=== PATIENT | female | born 1960 | race Caucasian/White ===

== ENCOUNTER 2018-10-06 06:57 | Day surgery (SDC) | payer BC ==
--- NOTE | 2018-10-03 12:57 | HP ---
CC: Dr. Casiano; Dr. Martinez* ADMITTING HISTORY AND PHYSICAL: DATE OF ADMISSION: 10/06/18 ADMITTING DIAGNOSIS: Left renal calculus. PLANNED PROCEDURE: Shock wave lithotripsy of left renal calculus. SURGEON: Dr. Martinez. HISTORY OF PRESENT ILLNESS: Kyra Bright is a 57-year-old lady, who was recently seen in followup and noted to have an 8.5-mm calculus in the left kidney; this has increased in size and she would like treatment of the same and is now being brought in for lithotripsy. PAST MEDICAL HISTORY: Unremarkable. PAST SURGICAL HISTORY: Significant for hysterectomy, , and lithotripsy in 2013. MEDICATIONS ON ADMISSION: None. ALLERGIES AND INTOLERANCES: PENICILLIN (breathing issues), SULFA (rash), ADHESIVE TAPE, LATEX. FAMILY HISTORY: Negative for stones. SOCIAL HISTORY: Smoking history: She is a nonsmoker. PHYSICAL EXAMINATION GENERAL: Reveals a pleasant middle-aged lady. VITAL SIGNS: Blood pressure is 104/70, pulse 67 per minute, temperature 97.7, oxygen saturation 98% on room air. LUNGS: Clear bilaterally. CARDIOVASCULAR: Regular rate and rhythm, S1 and S2. ABDOMEN: Soft with mild left flank tenderness. IMPRESSION: A 57-year-old lady with an 8.5-mm left renal calculus. I have discussed the procedure of lithotripsy in detail with her including risks of bleeding, infection, incomplete fragmentation. She understands and wishes to proceed as planned. PLAN: Shock wave lithotripsy, left renal calculus. [id number] #: [id number] MTDD
[~2018-10-06 06:57] MED LIST: Buffered Lidocaine 1% SYRIN* 1 ML/SYRINGE INTRADERM ONE; Famotidine IV* 10 MG/ML 2 ML (20 mg) IV ONE; Lactated Ringers 1000 ML Bag* 1,000 ML IV SCH
[2018-10-06] MEDS ORDERED: Famotidine IV* 10 MG/ML 2 ML (20 mg) ONE (07:02)
[2018-10-06] MEDS ORDERED: Levofloxacin 500 MG IVPREMIX(* 500 MG/100 ML BAG IVPB ONE (07:02)
[2018-10-06] MEDS ORDERED: Propofol* 10 MG/ML 20 ML BTL ONE (08:26)
[2018-10-06] MEDS ORDERED: Ondansetron INJ* 2 MG/ML VIAL ONE (08:26)
[2018-10-06] MEDS ORDERED: Lidocaine 2% PF * 5 ML VIAL ONE (08:26)
[2018-10-06] MEDS ORDERED: Dexamethasone IV* 4 MG/ML 1 ML (4 MG) ONE (08:26)
[2018-10-06] MEDS ORDERED: Midazolam* 1 MG/ML 5 ML VIAL (5 MG) ONE (08:26)
[2018-10-06] MEDS ORDERED: fentaNYL* 50 MCG/ML 2 ML VIAL (100 MCG VIAL) ONE (08:26)
[2018-10-06] MEDS ORDERED: EPHEDrine (Pressors)* 50 MG/ML VIAL ONE (09:43)
[2018-10-06] MEDS ORDERED: Furosemide IV* 10 MG/ML 2 ML VIAL (20 MG) ONE (09:50)
[2018-10-06] MEDS ORDERED: Ondansetron INJ* 2 MG/ML VIAL IV PRN (09:55)
[2018-10-06] MEDS ORDERED: oxyCODONE/Acetamin 5/325 MG* TAB PO PRN (09:55)
[2018-10-06] MEDS ORDERED: fentaNYL* 50 MCG/ML 2 ML VIAL (100 MCG VIAL) IV PRN (09:55)
[2018-10-06] MEDS ORDERED: Naloxone* 0.4 MG/ML 1 ML VIAL IV PRN (09:55)
[2018-10-06 11:10] VITALS: BP 122/70
--- NOTE | 2018-10-06 16:48 | OP ---
CC: Dr. Casiano, Dr. Martinez OPERATIVE SUMMARY: DATE OF OPERATION: 10/06/18 DATE OF : 60 SURGEON: Dr. Martinez. ANESTHESIOLOGIST: Dr. Lo. ANESTHESIA: General. PRE-OP DIAGNOSIS: Left renal calculus. POST-OP DIAGNOSIS: Left renal calculus. OPERATIVE PROCEDURE: Shockwave lithotripsy of the left renal calculus. COMPLICATIONS: None. POSTOPERATIVE CONDITION: Stable. INDICATIONS: Kyra Bright is a 57-year-old lady who was noted to have an approximately 8 mm to 9 mm calculus in the left kidney and desires treatment of the same. DESCRIPTION OF PROCEDURE: After induction of general anesthesia, the patient was placed on the litho tripsy table in the supine position. Sequential compression devices were in place and functioning. Initial fluoroscopy identified the calculus in the left kidney and shockwave lithotripsy was commence d at the rate of 60 shocks per minute. After the initial 300 shocks, there was a pause in lithotrips y for several minutes in an effort to minimize any potential trauma to the kidney. Lithotripsy was th en resumed and periodic imaging revealed good localization and fragmentation and a total of 1600 shoc ks were administered. The patient tolerated the procedure satisfactorily and was transferred back to recovery area in stable condition. [id number]/[facility] #: [id number]
== END 2018-10-06 11:25 | disposition home or self-care (01) ==
LOC: OR 06:57
PROVIDERS: ATTEND Urology
DX: N20.0 Calculus of kidney (principal); Z90.710 Acquired absence of both cervix and uterus; Z91.040 Latex allergy status; Z88.0 Allergy status to penicillin; Z88.2 Allergy status to sulfonamides; Z91.048 Other nonmedicinal substance allergy status
CPT/HCPCS: 74018; J1100; J1940; J1956; J2250; J2405; J2704; J3010

== ENCOUNTER → 2019-05-11 08:00 | Day surgery (SDC) | payer BC ==
--- NOTE | 2019-04-17 07:01 | HP ---
CC: Dr. Casiano * ADMITTING HISTORY AND PHYSICAL: DATE OF OPERATION: 05/11/19 ADMITTING DIAGNOSIS: Multiple right renal calculi. PLANNED PROCEDURE: Shockwave lithotripsy of right renal calculi. SURGEON: Dr. Martinez. HISTORY OF PRESENT ILLNESS: Kyra Bright is a 58-year-old lady with a history of bilateral renal calculi. She had previously undergone successful treatment of left renal calculi and a recent ultrasound showed complete resolution of the previously noted left renal calculi. She had 3 right renal calculi and is now being brought in for shockwave lithotripsy for the same, as she has been having some intermittent right flank pain for the last 3 weeks. PAST MEDICAL HISTORY: Significant for renal calculi. MEDICATIONS ON ADMISSION: None. ALLERGIES AND INTOLERANCES: PENICILLIN, SULFA, LATEX, and ADHESIVE TAPE. SOCIAL HISTORY: Smoking history: Nonsmoker. REVIEW OF SYSTEMS: She denies any chest pain or shortness of breath. There is no history of diabetes mellitus or any other major systemic illness. PHYSICAL EXAMINATION GENERAL: Reveals a pleasant middle-aged lady. VITAL SIGNS: Blood pressure is 110/70, pulse 62 per minute and regular, oxygen saturation 98% on room air, temperature 96.3. LUNGS: Clear bilaterally. CARDIOVASCULAR: Regular rate and rhythm. S1, S2. ABDOMEN: Soft with mild right flank tenderness. IMPRESSION: A 58-year-old lady with multiple right renal calculi. PLAN/RECOMMENDATIONS: Planned procedure is shockwave lithotripsy of right renal calculi. [id number]/CPS #: [id number] MTDD
[~2019-05-11 08:00] MED LIST changes: +Acetaminophen TAB* 325 MG PO PRN; +Dexamethasone IV* 4 MG/ML 1 ML (4 MG) IV SLOW PU ONE; +Dexamethasone IV* 4 MG/ML 1 ML (4 MG) ONE; +EPHEDrine (Pressors)* 50 MG/ML VIAL ONE; +Furosemide IV* 10 MG/ML 2 ML VIAL (20 MG) ONE; +HYDROcodone/ACETAMIN 5-325 MG* 1 TAB PO PRN; +HYDROmorphone INJ1* 1 MG/ML SYRINGE IV PRN; +Iohexol 180 (CONTRAST) 10 ML SDV IV ONE; +Levofloxacin 500 MG IVPREMIX(* 500 MG/100 ML BAG IVPB ONE; +Lidocaine 2% PF * 5 ML VIAL ONE; +Midazolam* 1 MG/ML 2 ML VIAL (2 MG) ONE; +Naloxone* 0.4 MG/ML 1 ML VIAL IV PRN; +Ondansetron INJ* 2 MG/ML VIAL ONE; +Phenylephrine 40 MCG/ML SYRINGE ONE; +Propofol* 10 MG/ML 20 ML BTL ONE; +fentaNYL* 50 MCG/ML 2 ML VIAL (100 MCG VIAL) ONE
[2019-05-11] MEDS: Lactated Ringers 1000 ML Bag* 1,000 ML IV SCH ×2 (08:45→09:01)
[2019-05-11 13:31] VITALS: BP 112/75
--- NOTE | 2019-05-11 17:21 | OP ---
CC: Dr. Casiano * DATE OF OPERATION: 05/11/19 - [facility] DATE OF : 60 SURGEON: Maurilio Martinez MD ANESTHESIOLOGIST: Dr. Castro. ANESTHESIA: General. PRE-OP DIAGNOSIS: Right renal calculi. POST-OP DIAGNOSIS: Right renal calculi. OPERATIVE PROCEDURE: Shockwave lithotripsy of right renal calculi. COMPLICATIONS: None. POSTOPERATIVE CONDITION: Stable. INDICATIONS: Kyra Bright is a 58-year-old lady with a history of bilateral renal calculi. She was recently evaluated and noted to have multiple right renal calculi, and is now being brought in for lithotripsy for the same. OPERATIVE FINDINGS: Multiple right renal calculi. DESCRIPTION OF PROCEDURE: After induction of general anesthesia, the patient was placed on the lithotripsy table in supine position. There were clusters of stones in the upper pole, mid pole, and lower pole of the right kidney. Under fluoroscopic monitoring, shockwave lithotripsy was commenced at a rate of 60 shocks per minute, initially targeting the lower pole stone. After the initial 300 shocks, there was a pause in lithotripsy for several minutes in an effort to minimize any potential trauma to the kidney. Lithotripsy was then resumed and a total of 2400 shock waves were distributed between the three clusters of stones. The patient tolerated the procedure satisfactorily and was transferred back to the recovery area in stable condition. My plan is to obtain a postoperative ultrasound in a few months to assess for degree of stone clearance. [id number]/CPS #: [id number] MTDD
== END | disposition home or self-care (01) ==
LOC: OR 08:00
PROVIDERS: ATTEND Urology
DX: N20.0 Calculus of kidney (principal); Z87.442 Personal history of urinary calculi; Z88.0 Allergy status to penicillin
CPT/HCPCS: 74018; J1100; J1940; J1956; J2250; J2405; J2704; J3010

== ENCOUNTER 2019-05-11 20:46 | Emergency (ER) | payer BC ==
[2019-05-11] MEDS ORDERED: NS 0.9% 1000 ML** 1,000 ML IV ONE (20:54)
[2019-05-11] MEDS ORDERED: Morphine 4 MG/ML VIAL (1 ml) 4 MG/ML VIAL IV ONE ×2 (20:54→23:24)
--- NOTE | 2019-05-11 21:02 | ED ---
GI/ HPI - HPI Summary HPI Summary: 58 year old female who presents to the ED via EMS for flank pain. Patient had lithotripsy today at 11 AM. She states she was at home when she began to pass a stone and was in excruciating pain. The pain wraps from her right flank to the right lower quadrant and is 10/10. Patient admits to nausea and vomiting. Also admits to hematuria. EMS gave Toradol and Zofran, which relieved pain, nausea and vomiting. The patient is now comfortable and states her pain is 4/10. she sees dr black. has fam hx of kidney stones. - History of Current Complaint Time Seen by Provider: 05/11/19 20:50 Stated Complaint: KIDNEY STONES PER EMS - Allergy/Home Medications Allergies/Adverse Reactions: Allergies Allergy/AdvReac Type Severity Reaction Status Date / Time Sulfa (Sulfonamide Allergy Severe Rash And Verified 05/11/19 21:24 Antibiotics) Itching Penicillins Allergy Intermediate Difficulty Verified 05/11/19 21:24 Breathing Adhesive Tape Allergy Unknown Verified 05/11/19 21:24 Reaction Details bee stings Allergy Severe Swelling Uncoded 05/11/19 21:24 Latex Allergy Severe Rash/Burnin Uncoded 05/11/19 21:24 g/Itching PMH/Surg Hx/FS Hx/Imm Hx Endocrine/Hematology History: Reports: Hx Thyroid Disease - Nodules-taking iodine drops-Hx Primary Hyperparathyroidism Cardiovascular History: Denies: Other Cardiovascular Problems/Disorders Respiratory History: Denies: Other Respiratory Problems/Disorders GI History: Reports: Hx Gastroesophageal Reflux Disease - Recently changed diet- symptoms have resolved, Hx Hiatal Hernia - NO TREAtment, Other GI Disorders - history of abdominal pain-no specific diagnosis History: Reports: Hx Kidney Stones - Hx of, current in right kidney-, lithotripsy in past Denies: Hx Dialysis Comment Only: Other Problems/Disorders - ALSO SOME CYST IN KIDNEYS, DR SAYS NO CONCERN CURRENTLY Musculoskeletal History: Reports: Other Musculoskeletal History - Left knee pain , cortisone [id number] resolved Sensory History: Reports: Hx Cataracts - Sun cataracts, Hx Contacts or Glasses - Glasses and contacts-will wear glasses day of surgery Denies: Hx Hearing Aid Opthamlomology History: Reports: Hx Cataracts - Sun cataracts, Hx Contacts or Glasses - Glasses and contacts-will wear glasses day of surgery Neurological History: Denies: Other Neuro Impairments/Disorders Psychiatric History: Reports: Hx Depression - states for a very short time, 3 weeks, 2004 more situational - Surgical History Surgery Procedure, Year, and Place: Parathyroidectomy 05/2015 [facility]. [place] Section x3. Hysterectomy 02/2003 [place]. Colonoscopies. Lithotripsy-[place] Hx Anesthesia Reactions: Yes - states she woke up during last lithotripsy - Family History Known Family History: Positive: Non-Contributory - Social History Alcohol Use: Rare Alcohol Amount: 2-3 DRINKS/YEAR MAYBE Substance Use Type: Reports: None Smoking Status (MU): Never Smoked Tobacco Have You Smoked in the Last Year: No Review of Systems Constitutional: Negative Cardiovascular: Negative Respiratory: Negative Positive: flank pain, hematuria Musculoskeletal: Negative Skin: Negative All Other Systems Reviewed And Are Negative: Yes Physical Exam Triage Information Reviewed: Yes Vital Signs Reviewed: Yes Appearance: Positive: Well-Appearing, No Pain Distress, Well-Nourished Skin: Positive: Warm, Skin Color Reflects Adequate Perfusion, Dry Head/Face: Positive: Normal Head/Face Inspection Eyes: Positive: Normal ENT: Positive: Pharynx normal Respiratory/Lung Sounds: Positive: Clear to Auscultation, Breath Sounds Present Cardiovascular: Positive: Normal, RRR Abdomen Description: Positive: Soft, CVA Tenderness (R), Other: - tenderness right side abd Bowel Sounds: Positive: Present Musculoskeletal: Positive: Normal Neurological: Positive: Normal Psychiatric: Positive: Normal, Affect/Mood Appropriate Procedures - Sedation Patient Received Moderate/Deep Sedation with Procedure: No Diagnostics - Laboratory Result Diagrams: 05/11/19 21:21 05/11/19 21:21 Lab Statement: Any lab studies that have been ordered have been reviewed, and results considered in the medical decision making process. - Radiology abd Radiology Interpretation Completed By: ED Physician Summary of Radiographic Findings: renal calculi present Re-Evaluation - Re-Evaluation First Eval Re-Evaluation Time: 23:24 Change: Worse Comment: pain returning, was given levaquin today Second Eval Change: Improved Comment: feeling better Third Eval Re-Evaluation Time: 00:43 Change: Unchanged Comment: pain resolved, patient feels comfortable going home at this time GIGU Course/Dx - Course Course Of Treatment: 58 year old female who presents with flank pain following lithotripsy this morning. She was given Zofran and Toradol with EMS and states that her pain, nausea, and vomiting has subsided. Lungs clear bilaterally, heart with regular rate and rhythm. mild right sided abdominal tenderness. Large stone in kidney noted on x-ray, no stones in ureters or urethra. wbc normal. urine shows potential uti. was given levaquin earlier today. will place on macrobid. patient pain is returning. gave more pain meds and feeling better and ready to go home. sent home on flomax and pain meds. will have follow up with urology. patient understand and agrees with plan. - Diagnoses Differential Diagnoses - Female: Pyelonephritis, Urinary Tract Infection, Ureteral Calculi Provider Diagnoses: Nephrolithiasis Discharge ED - Sign-Out/Discharge Documenting (check all that apply): Patient Departure - Discharge Plan Condition: Good Disposition: HOME Prescriptions: Hydrocodone/Acetaminophen [Vicodin Es 7.5-300 mg Tablet] 1 each PO Q6HR #16 tablet MDD 4 Nitrofurantoin Monohyd/M-Cryst [Macrobid 100 mg Capsule] 100 mg PO BID #10 cap Ondansetron ODT TAB* [Zofran 4 MG Odt TAB*] 4 mg PO Q6H PRN #16 tab.odt PRN Reason: Nausea Tamsulosin CAP* [Flomax CAP*] 0.4 mg PO DAILY #6 cap Patient Education Materials: Kidney Stones (ED) Referrals: Eagle Casiano MD [Primary Care Provider] - Maurilio Black MD [Medical Doctor] - Additional Instructions: take macrobid twice a day for 5 days Take ibuprofen every 6 hours and vicodin up to two tablets as needed every 6 hours Take Zofran every 6 hours for nausea as needed Take Flomax daily starting tomorrow, first dose given in ED until stone expelled , make sure stand up slowly Follow up with urology Strain urine until collect stone Return to ED if unable to manage pain at home, develop fever, or any new or worsening symptoms - Billing Disposition and Condition Condition: GOOD Disposition: Home
[2019-05-11 21:33] LABS: ABS Lymphocytes 0.9 10^3/ul (1.0-4.8); ABS Monocytes 0.6 10^3/ul (0-0.8); ABS Neutrophils 8.4 10^3/ul (1.5-7.7); Hematocrit 41 % (35-47); Hemoglobin 13.8 g/dL (12.0-16.0); Lymphocyte % 8.7 %; Mean Corpuscular HGB Conc 34 g/dL (31-36); Mean Corpuscular Hemoglobin 30 pg (27-31); Mean Corpuscular Volume 87 fL (80-97); Mean Platelet Volume 6.7 fL (7.4-10.4); Platelet Count 251 10^3/uL (150-450); Red Blood Count 4.68 10^6 /uL (3.70-4.87); Red Cell Distribution Width 14 % (10-15); White Blood Count 9.8 10^3/uL (3.5-10.8)
[2019-05-11 21:47] LABS: Albumin 4.1 g/dL (3.2-5.2); Albumin/Globulin Ratio 1.7 (1-3); BUN/Creatinine Ratio 25.3 (8-20); Calcium 9.4 mg/dL (8.6-10.3); EGFR African American 90.4 (>60); EGFR Non-African American 74.7 (>60); Globulin 2.4 g/dL (2-4); Total Bilirubin 0.4 mg/dL (0.2-1.0); Total Protein 6.5 g/dL (6.4-8.9)
[2019-05-11] MEDS ORDERED: Tamsulosin CAP* 0.4 MG PO ONE (22:53)
[2019-05-11 23:15] LABS: Urine Appearance Cloudy; Urine Bacteria Absent (Absent); Urine Bilirubin Negative (Negative); Urine Blood 3+ (Negative); Urine Color Amber; Urine Glucose Negative (Negative); Urine Ketones 1+ (Negative); Urine Nitrite Negative (Negative); Urine Protein 1+(30 mg/dL) (Negative); Urine Red Blood Cell 3+(>10/hpf) (Absent); Urine Specific Gravity 1.013 (1.010-1.030); Urine Squamous Epithelial Cell Present (Absent); Urine Urobilinogen Negative (Negative); Urine White Blood Cell 2+(11-20/hpf) (Absent)
[2019-05-11] MEDS ORDERED: Ondansetron INJ* 2 MG/ML VIAL IV ONE (23:24)
[2019-05-11] MEDS ORDERED: Ketorolac INJ* 30 MG/ML 1 ML VIAL IV PUSH ONE (23:24)
[2019-05-12] MEDS ORDERED: O ndansetron ODT 4MG 5TAB PRPK 4 MG PAK PO ONE (00:35)
[2019-05-12 01:03] VITALS: BP 104/67
--- NOTE | 2019-05-12 10:07 | ED ---
Imaging and Labs Follow Up Follow Up Type: Imaging Imaging Result: There is a small calculus in the right proximal ureter Patient Communication/Plan: Patient was treated appropriately and has proper follow-up in the near future. Nothing further at this time. Provider Diagnoses: Nephrolithiasis
== END 2019-05-12 00:45 | disposition home or self-care (01) ==
LOC: ED 20:46
DX: N20.0 Calculus of kidney (principal); Z84.1 Family history of disorders of kidney and ureter; E07.9 Disorder of thyroid, unspecified; Z88.0 Allergy status to penicillin; Z88.2 Allergy status to sulfonamides; K21.9 Gastro-esophageal reflux disease without esophagitis
CPT/HCPCS: 36415; 74018; 80053; 81003; 81015; 85025; 87086; 96361; 96374; 96375; 96376; 99283; A9270-GY; J1885; J2270; J2405

== ENCOUNTER → 2019-05-13 10:04 | Day surgery (SDC) | payer BC ==
[~2019-05-13 10:04] MED LIST changes: -Acetaminophen TAB* 325 MG PO PRN; -Dexamethasone IV* 4 MG/ML 1 ML (4 MG) IV SLOW PU ONE; -Dexamethasone IV* 4 MG/ML 1 ML (4 MG) ONE; +DiMENhydriNATE IV* 50 MG/ML VIAL IV PUSH PRN; -EPHEDrine (Pressors)* 50 MG/ML VIAL ONE; -Famotidine IV* 10 MG/ML 2 ML (20 mg) IV ONE; -Furosemide IV* 10 MG/ML 2 ML VIAL (20 MG) ONE; +Gentamicin ADULT (*) 160 MG in NS 0.9% 100 ML* 100 ML IVPB ONE; -HYDROcodone/ACETAMIN 5-325 MG* 1 TAB PO PRN; -Iohexol 180 (CONTRAST) 10 ML SDV IV ONE; -Lactated Ringers 1000 ML Bag* 1,000 ML IV SCH; -Lidocaine 2% PF * 5 ML VIAL ONE; -Midazolam* 1 MG/ML 2 ML VIAL (2 MG) ONE; +Ondansetron INJ* 2 MG/ML VIAL IV PRN; -Ondansetron INJ* 2 MG/ML VIAL ONE; -Phenylephrine 40 MCG/ML SYRINGE ONE; -Propofol* 10 MG/ML 20 ML BTL ONE; +Scopolamine 1.5 mg* PATCH TRANSDERM PRN; +Scopolamine PATCH Remove* 1 NOTE MISC PATCH OFF ONE; +fentaNYL* 50 MCG/ML 2 ML VIAL (100 MCG VIAL) IV PRN; -fentaNYL* 50 MCG/ML 2 ML VIAL (100 MCG VIAL) ONE
[2019-05-13 13:27] VITALS: BP 114/78
--- NOTE | 2019-05-13 20:13 | OP ---
DATE OF OPERATION: 05/13/19 - [facility] DATE OF : 60 SURGEON: Maurilio Martinez MD. ANESTHESIOLOGIST: Dr. Monet. ANESTHESIA: General. PRE-OP DIAGNOSES: 1. Right hydronephrosis. 2. Obstructing calculi, right ureter. POST-OP DIAGNOSES: 1. Right hydronephrosis. 2. Obstructing calculi, right ureter. OPERATIVE PROCEDURE: 1. Cystoscopy. 2. Right retrograde pyelogram. 3. Right ureteroscopy. 4. Laser lithotripsy of right ureteral calculi and removal of calculi fragments and right stent insertion. INDICATIONS: Kyra Chanel is a 58-year-old lady who has undergone shock wave lithotripsy for multiple right renal calculi. She was evaluated for right flank pain and noted to have obstructing fragment in the right ureter. COMPLICATIONS: None. STENT USED: A 7-Belizean stent, right ureter. POSTOPERATIVE CONDITION: Stable. DESCRIPTION OF PROCEDURE: After induction of general anesthesia, the patient was placed in the dorsal lithotomy position. Sequential compression devices were in place and functioning. Initial cystoscopy revealed a normal-appearing bladder. A guidewire was introduced into the right ureter. Retrograde pyelogram revealed right hydronephrosis. A 6-Belizean semi-rigid ureteroscope as introduced and advanced under direct vision. The distal most part of the right ureter was severely narrow and above it was a cluster of fragments, probably about 4 or 5 fragments in total. The largest measured probably 3 to 4 mm. Using a 550 micron holmium laser, these were successfully broken up into smaller fragments, all of which were then retrieved using a 3-prong grasper. A final look with the ureteroscope confirmed no residual fragment and a 7-Belizean stent was introduced and positioned under fluoroscopy with good proximal and distal poisoning obtained. The bladder was emptied. The patient tolerated the procedure satisfactorily and was transferred back to the recovery area in stable condition. [id number]/[facility] #: [id number] [facility]
== END | disposition home or self-care (01) ==
LOC: OR 10:04
PROVIDERS: ATTEND Urology
DX: N13.2 Hydronephrosis with renal and ureteral calculous obstruction (principal); Z87.442 Personal history of urinary calculi; Z88.0 Allergy status to penicillin; E04.1 Nontoxic single thyroid nodule
CPT/HCPCS: 74420; 82365; 88300; C1876; J1100; J1580; J1956; J2250; J2405; J2704; J3010